=== PATIENT | female | born 1985 | race Caucasian/White ===

== ENCOUNTER → 2018-02-25 | Outpatient (CLI) | payer OTHER ==
[2018-02-25 08:55] LABS: CHOL/HDL RATIO 2.6; LDL/HDL RATIO 1.5 (0.5-3.0)
== END | disposition home or self-care (01) ==
LOC: LAB 08:31
PROVIDERS: ATTEND Radiology Diagnostic Radiology
DX: E78.00 Pure hypercholesterolemia, unspecified (principal)
CPT/HCPCS: 36415; 80061

== ENCOUNTER 2019-12-08 10:24 | Outpatient (CLI) | payer OTHER ==
[2019-12-08] MEDS ORDERED: GADOTERATE 10 MMOL/20 ML VIAL ONE (11:24)
== END 2019-12-08 23:59 | disposition home or self-care (01) ==
LOC: CFH 10:24
PROVIDERS: ATTEND Radiology Diagnostic Radiology
DX: Z91.89 Other specified personal risk factors, not elsewhere classified (principal)
CPT/HCPCS: 77049; A9575; C8908; C8937

== ENCOUNTER → 2020-01-17 | Outpatient (CLI) | payer OTHER | END | disposition home or self-care (01) | LOC: LAB 13:19 | PROVIDERS: ATTEND Registered Nurse | DX: Z11.3 Encounter for screening for infections with a predominantly sexual mode of transmission (principal) | CPT/HCPCS: 36415; 86592; 86706; 86803; 87806; G0475 ==

== ENCOUNTER → 2020-02-01 | Outpatient (CLI) | payer OTHER ==
[2020-02-01 12:20] LABS: MEAN CORPUSCULAR HEMOGLOBIN 30.2 pg (27.0-34.8); MEAN CORPUSCULAR HGB CONC 33.1 g/dL (32.4-35.8); MEAN CORPUSCULAR VOLUME 91.1 fL (80-100); MEAN PLATELET VOLUME 7.8 fL (7.4-10.4); PLATELET COUNT 264 x10^3/uL (130-400); RED BLOOD COUNT 4.51 x10^6/uL (3.82-5.3); RED CELL DISTRIBUTION WIDTH 12.9 % (9.6-15.2)
[2020-02-01 13:06] LABS: ALBUMIN 4.2 g/dL (3.4-5.0); ANION GAP 6 mmol/L (5-15); CALCIUM 8.6 mg/dL (8.5-10.1); CHLORIDE 105 mmol/L (98-107)
[2020-02-01 13:09] LABS: ALANINE AMINOTRANSFERASE 29 U/L (12-78); ALKALINE PHOSPHATASE 59 U/L (45-117); BILIRUBIN,TOTAL 0.3 mg/dL (0.2-1.0); CREATININE 0.83 mg/dL (0.55-1.02); TOTAL PROTEIN 7.5 g/dL (6.4-8.2)
== END | disposition home or self-care (01) ==
LOC: LAB 12:03
PROVIDERS: ATTEND Family Medicine
DX: K92.1 Melena (principal)
CPT/HCPCS: 36415; 80053; 82274; 83993; 85027

== ENCOUNTER 2020-09-19 14:43 | Outpatient (CLI) | payer OTHER ==
[2020-09-19 15:09] LABS: BASOPHILS % (AUTO) 1 % (0-1); EOSINOPHILS % (AUTO) 1 % (1-7); LYMPHOCYTES % (AUTO) 31 % (22-44); MEAN CORPUSCULAR HEMOGLOBIN 30.5 pg (27.0-34.8); MEAN CORPUSCULAR HGB CONC 34.4 g/dL (32.4-35.8); MEAN PLATELET VOLUME 8.2 fL (7.4-10.4); MONOCYTES % (AUTO) 7 % (2-9); NEUTROPHILS % (AUTO) 60 % (42-75); PLATELET COUNT 235 x10^3/uL (130-400); RED BLOOD COUNT 4.72 x10^6/uL (3.82-5.3); RED CELL DISTRIBUTION WIDTH 13.8 % (9.6-15.2)
[2020-09-19 15:10] LABS: MD NO
[2020-09-19 15:16] LABS: ALANINE AMINOTRANSFERASE 28 U/L (12-78); ALBUMIN 4.1 g/dL (3.4-5.0); ANION GAP 8 mmol/L (5-15); CALCIUM 8.6 mg/dL (8.5-10.1); CHLORIDE 106 mmol/L (98-107); CREATININE 0.78 mg/dL (0.55-1.02); IRON LEVEL 137 mcg/dL (50-170)
[2020-09-19 15:25] LABS: % IRON SATURATION 42 % (20-55); ALKALINE PHOSPHATASE 65 U/L (45-117); BILIRUBIN,TOTAL 0.4 mg/dL (0.2-1.0); TOTAL IRON BINDING CAPACITY 326 mcg/dL (250-450); TOTAL PROTEIN 7.6 g/dL (6.4-8.2); TRANSFERRIN 243 mg/dL (200-360)
== END 2020-09-19 23:59 | disposition home or self-care (01) ==
LOC: LAB 14:43
PROVIDERS: ATTEND Family Medicine
DX: R53.83 Other fatigue (principal)
CPT/HCPCS: 36415; 80053; 82728; 83540; 83550; 84443; 84466; 85025

== ENCOUNTER 2021-03-06 10:07 | Outpatient (CLI) | payer OTHER ==
[2021-03-06] MEDS ORDERED: GADOTERATE 10 MMOL/20 ML VIAL ONE (11:26)
== END 2021-03-06 23:59 | disposition home or self-care (01) ==
LOC: CFH 10:07
PROVIDERS: ATTEND Radiology Diagnostic Radiology
DX: Z12.31 Encounter for screening mammogram for malignant neoplasm of breast (principal); N60.02 Solitary cyst of left breast; Z91.89 Other specified personal risk factors, not elsewhere classified
CPT/HCPCS: 77049; 77063; 77067; A9575; C8908